=== PATIENT | male | born 1960 | race Caucasian/White ===

== ENCOUNTER → 2022-09-06 | Outpatient (CLI) | payer MEDICARE | LOC: M PLAIMG 14:53 | PROVIDERS: ATTEND Physician Assistant | DX: M16.12 Unilateral primary osteoarthritis, left hip (principal) ==

== ENCOUNTER → 2025-04-16 | Outpatient (CLI) | payer OTHER ==
[~2025-04-16] MED LIST: METHACHOLINE KIT (6 VIAL.NEB PREMIX) INH ONE
== END ==
LOC: M CARPUL 08:00
PROVIDERS: ATTEND Internal Medicine Pulmonary Disease
DX: R05.9 Cough, unspecified (principal); R91.1 Solitary pulmonary nodule; R06.02 Shortness of breath; G47.33 Obstructive sleep apnea (adult) (pediatric); J30.9 Allergic rhinitis, unspecified; Z99.89 Dependence on other enabling machines and devices
CPT/HCPCS: 88738; 94010; 94070; 94726; 94729; 95070; G0463; J7674